=== PATIENT | male | born 1955 | race Caucasian/White ===

== ENCOUNTER 2021-05-12 23:35 | Emergency (ER) | payer BC ==
[~2021-05-12] VITALS: Ht 177.8 cm; Wt 109.8 kg
[~2021-05-12 23:35] MED LIST: ALPR0.5T PO; ASPI-612 PO; METO-356 PO; SIMV10TA98 PO
--- NOTE | 2021-05-13 | NUR ---
Dr. Perez at bedside for MSE.
[2021-05-13] MEDS ORDERED: ASPIRIN 81 MG TAB.CHEW ONE (00:15)
[2021-05-13] MEDS: ASPIRIN 81 MG TAB.CHEW PO ONE (00:16)
[2021-05-13] MEDS: MAG HYDROX/AL HYDROX/SIMETH 30 ML LIQUID UDC PO ONE (00:22)
[2021-05-13] MEDS: LIDOCAINE VISCUS 2% 15 ML UDC MM ONE (00:22)
[2021-05-13 00:25] LABS: HEMATOCRIT 45.3 % (36.7-47.1); MEAN CORPUSCULAR HEMOGLOBIN 27.9 uug (23.8-33.4); MEAN CORPUSCULAR VOLUME 81.9 fL (73.0-96.2); PLATELET COUNT (AUTO) 170 K/uL (152-348)
[2021-05-13] MEDS ORDERED: LIDOCAINE VISCUS 2% 15 ML UDC ONE (00:25)
[2021-05-13] MEDS ORDERED: MAG HYDROX/AL HYDROX/SIMETH 30 ML LIQUID UDC ONE (00:25)
[2021-05-13 00:26] LABS: CARBON DIOXIDE 27 mmol/L (21-32); CHLORIDE 109 mmol/L (98-107); CREATININE 1.3 mg/dL (0.6-1.3); GLUCOSE 95 mg/dL (74-106); POTASSIUM 4.1 mmol/L (3.5-5.1); UREA NITROGEN, BLOOD 13 mg/dL (7-18)
--- NOTE | 2021-05-13 00:28 | NUR ---
Xray at bedside.
[2021-05-13 00:33] LABS: ALANINE AMINOTRANSFERASE 21 U/L (16-63); ALKALINE PHOSPHATASE 60 U/L (50-136); ASPARTATE AMINOTRANSFERASE 13 U/L (15-37); BILIRUBIN,DIRECT < 0.1 mg/dL (0.0-0.2); BILIRUBIN,TOTAL 0.8 mg/dL (0.2-1.0); TOTAL PROTEIN, SERUM 7.1 g/dL (6.4-8.2)
--- NOTE | 2021-05-13 04:19 | NUR ---
Patient discharged to home in stable condition. Written and verbal after care instructions given. Patient verbalizes understanding of instructions. Stressed follow up or return to ER for worsening s/s. Patient out of ER with steady gait, VSS, all belongings taken, all belongings taken, provided with copy of lab, ekg, and xray results, IV site discontinued.
[2021-05-13 04:20] VITALS: BP 150/78
== END 2021-05-13 04:20 | disposition home or self-care (01) ==
LOC: ER 23:40
DX: I24.9 Acute ischemic heart disease, unspecified (principal); I49.3 Ventricular premature depolarization; E66.9 Obesity, unspecified; Z68.34 Body mass index [BMI] 34.0-34.9, adult; Z79.899 Other long term (current) drug therapy; Z79.82 Long term (current) use of aspirin
CPT/HCPCS: 36415; 70030-TC; 71045; 83735; 85025; 93005; A4663

== ENCOUNTER 2022-05-01 03:29 | Emergency (ER) | payer BC ==
[~2022-05-01] VITALS: Ht 177.8 cm; Wt 104.3 kg
[2022-05-01] MEDS ORDERED: KETOROLAC TROMETHAMINE 30 MG INJ ONE (03:49)
[2022-05-01 04:17] LABS: HEMATOCRIT 43.1 % (36.7-47.1); MEAN CORPUSCULAR HEMOGLOBIN 28.5 uug (23.8-33.4); MEAN CORPUSCULAR VOLUME 83.7 fL (73.0-96.2); PLATELET COUNT (AUTO) 169 K/uL (152-348)
--- NOTE | 2022-05-01 04:20 | NUR ---
Patient taken down for CT scan.
[2022-05-01 04:27] LABS: ALANINE AMINOTRANSFERASE 22 U/L (16-63); ALKALINE PHOSPHATASE 60 U/L (50-136); AMYLASE 60 U/L (25-115); ASPARTATE AMINOTRANSFERASE < 5 U/L (15-37); BILIRUBIN,TOTAL 0.4 mg/dL (0.2-1.0); CARBON DIOXIDE 26 mmol/L (21-32); CHLORIDE 110 mmol/L (98-107); CREATININE 1.5 mg/dL (0.6-1.3); GLUCOSE 101 mg/dL (74-106); LIPASE 89 U/L (73-393); POTASSIUM 3.8 mmol/L (3.5-5.1); UREA NITROGEN, BLOOD 22 mg/dL (7-18)
[2022-05-01] MEDS ORDERED: IV NS 1000 ML 1,000 ML IV ONE (04:30)
[2022-05-01] MEDS ORDERED: KETOROLAC TROMETHAMINE 30 MG INJ IVP ONE (04:30)
--- NOTE | 2022-05-01 04:33 | NUR ---
Patient back from CT.
[2022-05-01] MEDS ORDERED: HYDROMORPHONE 1 MG/1 ML DISP.SYRIN ONE (05:43)
[2022-05-01] MEDS ORDERED: HYDROMORPHONE 1 MG/1 ML DISP.SYRIN IV ONE (05:45)
[2022-05-01] MEDS ORDERED: OXYC-128 PO (06:46)
[2022-05-01] MEDS ORDERED: ONDA4TAB11 PO (06:46)
--- NOTE | 2022-05-01 06:55 | NUR ---
Patient discharged to home in stable condition. A/O x4. NAD noted. All belongings with patient. Written and verbal after care instructions given. Patient verbalizes understanding of instructions. Stressed follow up or return to ER for worsening s/s.
[2022-05-01 06:58] VITALS: BP 140/76
[2022-05-01 07:14] LABS: *BILIRUBIN,URIN NEGATIVE (NEGATIVE); *BLOOD, URINE 2+ (NEGATIVE); *CLARITY,URINE CLEAR (CLEAR); *COLOR,URINE YELLOW (YELLOW); *KETONES,URINE NEGATIVE (NEGATIVE); *UROBILINOGEN,URINE 0.2 E.U./dl (NORMAL); LEUKOCYTE ESTERASE ,URINE NEGATIVE (NEGATIVE); NITRITE, URINE NEGATIVE (NEGATIVE); PH,URINE 5.5 (5.0-8.0); UGLUCOSE NEGATIVE (NEGATIVE)
[2022-05-01 09:12] LABS: BACTERIA,URINE FEW /HPF (NONE SEEN); SQUAMOUS EPITHELIAL CELL,UR FEW /HPF (NONE SEEN); WBC,URINE 0-3 /HPF (0-3)
== END 2022-05-01 06:55 | disposition home or self-care (01) ==
LOC: ER 03:29
DX: N13.2 Hydronephrosis with renal and ureteral calculous obstruction (principal); N28.9 Disorder of kidney and ureter, unspecified; R10.11 Right upper quadrant pain
CPT/HCPCS: 99284; 74176; 96374; 96361; 96375; 80053; 81001; 82150; 83690; 85025; 36415; J1885; J1170; J7040; A4663

== ENCOUNTER 2024-08-02 14:07 | Emergency (ER) | payer BC ==
[~2024-08-02] VITALS: Ht 177.8 cm; Wt 111.1 kg
[~2024-08-02 14:07] MED LIST changes: +ONDA4TAB11 PO; +OXYC-128 PO
[2024-08-02 14:32] VITALS: O2SAT 99
== END 2024-08-02 15:32 | disposition left against medical advice (07) ==
LOC: ER 14:07
DX: H57.10 Ocular pain, unspecified eye (principal); Z53.21 Procedure and treatment not carried out due to patient leaving prior to being seen by health care provider
CPT/HCPCS: A4606; A4663